=== PATIENT | female | born 1950 | race Caucasian/White ===

== ENCOUNTER 2020-03-27 09:36 | Emergency (ER) | payer BC, OTHER ==
[~2020-03-27] VITALS: Ht 162.6 cm; Wt 73.6 kg
--- NOTE | 2020-03-27 09:43 | ED Upper Extremity ---
General Chief Complaint: Upper Extremity Stated Complaint: FALL; RT ARM INJ History of Present Illness Date Seen by Provider: Mar 27, 2020 Time Seen by Provider: 09:43 Initial Comments 69-year-old female presents with injury to the right wrist. Patient reports she was out side walking around the front of her car when she slipped and fell in the snow and ice. She presents with obvious deformity to the right wrist with limited range of motion. She reports she is up-to-date on her tetanus, denies any other injuries. Patient has some mild numbness" in the area of the swelling. She does have feeling in her fingers with good pulses. Onset: just prior to arrival Allergies and Home Medications Allergies Coded Allergies: codeine (Verified Allergy, Unknown, 03/27/20) Patient Home Medication List Home Medication List Reviewed: Yes Review of Systems Constitutional: No chills, No fever Respiratory: No cough, No short of breath Cardiovascular: No chest pain Gastrointestinal: no symptoms reported Genitourinary: no symptoms reported Musculoskeletal: see HPI Skin: no symptoms reported Psychiatric/Neurological: No Symptoms Reported Past Weoopar-Krqpdf-Ggkwsk Hx Past Med/Social Hx: Reviewed Nursing Past Med/Soc Hx Patient Social History Recent Foreign Travel: No Contact w/Someone Who Travel: No Physical Exam Vital Signs Vital Signs - First Documented 03/27/20 09:50 Temp 36.4 Pulse 69 Resp 18 B/P (MAP) 143/66 (91) Pulse Ox 98 O2 Delivery Room Air Capillary Refill : Height, Weight, BMI Height: '" Weight: lbs. oz. kg; BMI Method: General Appearance: mild distress HEENT: PERRL/EOMI Neck: full range of motion, supple Cardiovascular: normal peripheral pulses, regular rate, rhythm Respiratory: lungs clear, normal breath sounds Wrist: Yes bone tenderness, Yes deformity (right wrist), Yes limited ROM, Yes swelling Neurologic/Tendon: normal sensation Neurologic/Psychiatric: caregivers homecare II-XII nml as tested, alert, normal mood/affect, oriented x 3 Skin: other (obvious swelling right wrist) Procedures/Interventions Splinting and Joint Reduction : Pre-Proc Neuro Vasc Exam: normal Post-Proc Neuro Vasc Exam: normal Progress A reverse sugar tong was placed. Patient tolerated well. Good sensation in her fingers with good finger movement and good cap refill and pulses post splint placement Pre-Procedure NV Exam: Yes Hand-Made Type: orthoglass Progress/Results/Core Measures Results/Orders My Orders Orders - ABDI BRIGGS DO Bupivacaine 0.5% Injection (Sensorcaine (03/27/20 09:45) Lidocaine 1% Inj 20 Ml (Xylocaine 1% Inj (03/27/20 09:45) Wrist 3 View Right (03/27/20 09:45) Fentanyl Injection (Sublimaze Injection (03/27/20 09:53) Fentanyl Injection (Sublimaze Injection (03/27/20 10:00) Vital Signs/I&O 03/27/20 09:50 Temp 36.4 Pulse 69 Resp 18 B/P (MAP) 143/66 (91) Pulse Ox 98 O2 Delivery Room Air Progress Progress Note : Time: 10:28 Progress Note Patient tolerated splint with no difficulty. Patient post-splint placement has good finger movement, Refill, pulses and sensation. Patient would prefer to follow-up with orthopedic surgeon of her choice most likely [facility] orthopedics at [place]. Patient was offered Lortab her tramadol but at this time would prefer to just try Tylenol and ibuprofen for pain control.. Diagnostic Imaging Diagonstic Imaging: Xray Plain Films/CT/US/NM/MRI: other Comments [facility], [place] NAME: YUMIKO MACHADO [facility] REC#: [id number] PT STATUS: REG ER : 1950 PHYSICIAN: ABDI BRIGGS DO ADMIT DATE: 03/27/20/ER FS Draft Date of Exam:03/27/20 WRIST 3 VIEW RIGHT INDICATION: Right wrist pain post fall TECHNIQUE: 3 views of the right wrist 9:49 AM CORRELATION STUDY: None FINDINGS: There is a comminuted impacted intraarticular fracture of the distal right radius. There is slight dorsal displacement and angulation of the main fracture fragments. Carpal bones followed displaced angulated distal radial surface. There is also relatively nondisplaced fracture through the base of the ulnar styloid. Associated soft tissue swelling. IMPRESSION: 1. Comminuted impacted angulated distal right radius fracture. 2. Nondisplaced ulnar styloid process fracture. Dictated on workstation # [id number] Dict: 03/27/20 0957 Trans: 03/27/20 1004 CVB [id number] Interpreted by: LIZETT DIAZ DO Electronically signed by: Departure Impression Primary Impression: Fracture of distal end of radius and ulna Qualified Codes: S52.501A - Unspecified fracture of the lower end of right radius, initial encounter for closed fracture; S52.601A - Unspecified fracture of lower end of right ulna, initial encounter for closed fracture Disposition: HOME, SELF-CARE Condition: Stable Departure-Patient Inst. Referrals: NO,LOCAL PHYSICIAN (PCP/Family) Primary Care Physician Patient Instructions: Wrist Fracture (DC), Radius Fracture (DC), Cast Care ED Add. Discharge Instructions: Follow-up on Monday with orthopedic surgeon every her choice for further evaluation and scheduling of surgery 800 mg ibuprofen every 8 hours as needed for pain, thousand milligrams of Tylenol every 8 hours as needed for pain Keep arm elevated Ice to affected area Keep in sling when ambulating All discharge instructions reviewed with patient and/or family. Voiced understanding. ABDI BRIGGS DO Mar 27, 2020 09:43
[2020-03-27] MEDS ORDERED: LIDOCAINE 1% INJ 20 ML 20 ML VIAL INJ ONE (09:45)
[2020-03-27] MEDS ORDERED: BUPIVACAINE 0.5% 30 ML (SENSORCAINE) VIAL INJ ONE (09:45)
[2020-03-27] MEDS ORDERED: fentaNYL INJECTION 100 MCG/2 ML AMP ONE (09:53)
[2020-03-27] MEDS ORDERED: fentaNYL INJECTION 100 MCG/2 ML AMP IM ONE (10:00)
--- NOTE | 2020-03-27 10:04 | Diagnostic Imaging Report ---
INDICATION: Right wrist pain post fall TECHNIQUE: 3 views of the right wrist 9:49 AM CORRELATION STUDY: None FINDINGS: There is a comminuted impacted intraarticular fracture of the distal right radius. There is slight dorsal displacement and angulation of the main fracture fragments. Carpal bones followed displaced angulated distal radial surface. There is also relatively nondisplaced fracture through the base of the ulnar styloid. Associated soft tissue swelling. IMPRESSION: 1. Comminuted impacted angulated distal right radius fracture. 2. Nondisplaced ulnar styloid process fracture. Dictated by: Dictated on workstation # [id number]
[2020-03-27 10:58] VITALS: BP 143/72
== END 2020-03-27 11:01 | disposition home or self-care (01) ==
LOC: ER FS 09:39
DX: S52.571A Other intraarticular fracture of lower end of right radius, initial encounter for closed fracture (principal); S52.614A Nondisplaced fracture of right ulna styloid process, initial encounter for closed fracture; Z88.5 Allergy status to narcotic agent; W01.0XXA Fall on same level from slipping, tripping and stumbling without subsequent striking against object, initial encounter
CPT/HCPCS: 25605; 29105; 64450; 73110

== ENCOUNTER → 2020-04-03 | Outpatient (CLI) | payer BC | LOC: LAB FS 09:59 | PROVIDERS: ATTEND Emergency Medicine | DX: Z01.812 Encounter for preprocedural laboratory examination (principal); Z20.822 Contact with and (suspected) exposure to COVID-19 | CPT/HCPCS: 87635 ==